=== PATIENT | female | born 1965 | race Hispanic/Latino ===

== ENCOUNTER → 2024-12-19 | Outpatient (CLI) | payer OTHER ==
--- NOTE | 2024-12-19 19:39 | HMCIMG ---
Exam: Ultrasound of the bladder. History: Urinary frequency, incomplete bladder emptying Technique: Grayscale and color Doppler imaging was performed. Static images were obtained. Findings: The bladder contours are smooth. There are no bladder filling defects. The prevoid bladder volume: 358 cc The postvoid bladder volume measures: 63.1 cc Impression: Residual postvoid bladder volume 63 mL. /[place]
== END | disposition home or self-care (01) ==
LOC: RAH 15:01
PROVIDERS: ATTEND Family Medicine
DX: R33.9 Retention of urine, unspecified (principal); R35.0 Frequency of micturition
CPT/HCPCS: 76857